=== PATIENT | female | born 1925 | race Caucasian/White ===

== ENCOUNTER → 2016-08-13 | Outpatient (CLI) | payer MEDICARE, BC ==
[~2016-08-13] MED LIST: ALLOPURINOL100 MG PO; AMLODIPINE10 M1 PO; CLONIDINE0.2 MG PO; CLONIDINE0.3 MG PO; COUMADIN 7.5MG7.5 MG PO; DIGOXIN0.125 MG PO; DYRENIUM50 MG PO; FUROSEMIDE20 MG PO; LEVOTHYROXINE0.05 MG PO; MEDROL 4MG. DOSE4 MG PO; METOPROLOL SUC100 MG PO; PRAVASTATIN SOD40 MG PO; SOTALOL 80MG TA80 MG PO; VITAMIN D31000 IU PO; WARFARIN SOD5 MG PO
== END ==
LOC: LAB 10:27
DX: Z79.01 Long term (current) use of anticoagulants (principal)

== ENCOUNTER → 2016-08-20 | Outpatient (CLI) | payer MEDICARE, BC | LOC: LAB 10:27 | DX: Z79.01 Long term (current) use of anticoagulants (principal); Z51.81 Encounter for therapeutic drug level monitoring ==

== ENCOUNTER 2016-09-12 11:01 | Emergency (ER) | payer MEDICARE, BC ==
[~2016-09-12] VITALS: Ht 157.5 cm; Wt 72.6 kg
[~2016-09-12 11:01] MED LIST changes: -MEDROL 4MG. DOSE4 MG PO
[2016-09-12] MEDS ORDERED: MEDROL 4MG. DOSE4 MG PO (12:00)
--- NOTE | 2016-09-12 12:01 | Urgent Treatment Center Report ---
History of Present Issue Date/Time Seen by Provider 09/12/16 1200 Visit Reason Pt arrived:Wheelchair Presenting Problem:PT C/O RIGHT SHOULDER PAIN, ADVISES SHE CAN'T LIFT IT VERY WELL. UNKOWN IF ANY SPECIFIC INJURY, ADVISES SHE HAS TO USE HER ARMS ALOT DUE TO NOT BEING ABLE TO WALK Location if Accident: Onset of symptoms date/time:/ or onset unknown for:MEDICAL HX UNKNOWN Have you (or family members/close friends) recently traveled outside the [place]? N If Yes, where/when: Have you had exposure to infectious disease within the past month? TB? Other? Specify: Source patient, RN notes reviewed, family Exam Limitations no limitations Comment Pt has had right shoulder pain X 2 days. No specific injury. States that she cannot walk/use her legs so she pulls and lifts with her arms constantly. Pain in shoulder joint and upper portion of right arm. Does have a history of TIAs but states that she did not have any other symptoms suggestive of TIA/stroke. Arm is painful with movement and fairly normal at rest, but ROM is greatly restricted. ALLERGIES Coded Allergies: Penicillins (Mild, 09/12/16) Home Medications Reported Medications CHOLECALCIFEROL (VITAMIN D3) (Vitamin D) 1,000 IU PO DAILY Clonidine Hcl (Clonidine) 0.2 MG PO DAILY CLONIDINE HCL (Clonidine 0.3MG Tablet) 0.3 MG PO QHS Pravastatin Sodium 40 MG PO DAILY Metoprolol Succinate Xl (Metoprolol Succinate) 100 MG PO DAILY Amlodipine Besylate (Amlodipine) 10 MG PO DAILY Allopurinol 100 MG PO DAILY Triamterene (Dyrenium) 50 MG PO DAILY WARFARIN SOD (Warfarin 5MG) 5 MG PO 4XWEEK WARFARIN SOD (Coumadin) 3.75 MG PO 3XWEEK Levothyroxine Sodium (Levothyroxine) 0.05 MG PO DAILY SOTALOL HCL (Sotalol) 80 MG PO BID DIGOXIN (Digox) 0.125 MG PO DAILY Furosemide 20 MG PO PRN History Medical History General CAD? No Angina: No [place]: No Hypertension? Yes Hyperlipidemia? Yes CHF? No DVT? No PE? No COPD? No Asthma? No Anemia? No GERD? No Gastric ulcers? No GI Bleed? No Hernia? No Thyroid Problems? No Hypothyroidism? No CVA? No Seizures? No Diabetes? No Renal Insuffiency? No UTI? No Stones? No BPH? No GB Disease: No Nephritic Syndrome? No Asplenia? No Hepatitis? No Sickle Cell Disease? No Arthritis? No Migraines? No Cataracts? No Glaucoma? No MRSA? Yes HIV? No TB? No Anxiety? No Depression? No Cancer? No More? 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 No: respiratory distress. Cardiovascular regular rate/rhythm, no peripheral edema Peripheral Pulses Pulses normal Yes Extremities normal capillary refill, right shoulder painful to palpation; upper deltoid/bicep painful; animal biologist strength intact; pulses 1+ bilaterally; no acute deformity; painful abduction and adduction Strength 3 Upper Ext (R) Neurologic alert, oriented x 3 Medical Decision Making LABS/Meds/Orders Pt receiving controlled substance in ED? No Results/Orders Orders Procedure Date/time Status [id number] VIEWS 09/12 1117 Active XRAY/CT/US XRAY/CT/US XRAY shoulder XR interpretation by reviewed by me Xray Results no fracture seen, abnormal, OA Comment Radiologist will provide official reading tomorrow Departure Departure Time of Disposition 1220 Disposition DC Home or Self Care(routine) Clinical Impression Primary Impression: Shoulder pain, right Qualifiers: Chronicity: acute Qualified Code: M25.511 - Pain in right shoulder Condition STABLE Referrals Delfina GOMEZ,Mirna Valles (PCP/Family): 3 Days-Call Office Patient Instructions DI for Shoulder Pain Additional Instructions f/u with Dr Mathis if not improving - may need additional imaging Discharge Counseling Counseled pt/family regarding diagnosis, test results, medications/RX, follow up needs Prescriptions Current Visit Scripts Methylprednisolone (Medrol Dose Emiliano) 4 MG PO UD #1 EMILIANO TAKE DIRECTED ON PACKAGING at 1246
[2016-09-12 12:07] VITALS: BP 130/66
--- NOTE | 2016-09-12 13:26 | RADIOLOGY REPORT PS360 ---
[id number] VIEWS COMPARISON: None HISTORY: Right shoulder pain TECHNIQUE: 3 views right shoulder FINDINGS: The clavicle is intact. There is moderate again change of the AC joint with spurring superiorly. Is a high riding humeral head and humeral head sitting just below the acromion process. This is usually indicative of rotator cuff pathology. There is a round bone fragment sitting just posterior to the glenohumeral joint. 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
== END 2016-09-12 12:08 | disposition home or self-care (01) ==
LOC: UTC 11:01
DX: M25.511 Pain in right shoulder (principal); G45.8 Other transient cerebral ischemic attacks and related syndromes; I10 Essential (primary) hypertension